=== PATIENT | male | born 1975 | race Caucasian/White ===

== ENCOUNTER 2022-09-10 07:57 | Inpatient (IN) | payer SELFPAY ==
[~2022-09-10 07:57] MED LIST: Lorazepam 1 MG TAB PO PRN
[2022-09-10] MEDS ORDERED: Ondansetron PF 4 MG/2 ML Vial ONE (08:38)
[2022-09-10] MEDS ORDERED: HYDROmorphone 0.5 MG/0.5 ML SYRINGE ONE ×3 (08:39→12:33)
[2022-09-10 08:56] LABS: Mean Corpuscular HGB CONC 31.7 g/dL (32.0-36.0); Mean Corpuscular Hemoglobin 26.4 pg (27.0-33.0); Mean Corpuscular Volume 83.2 fl (81.2-95.1); Mean Platelet Volume 9.9 fl (7.4-10.4); Platelet Count 286 10x3/uL (150-450); RBC Distribution Width 18.9 % (11.5-14.5); Red Blood Cell (RBC) Count 5.31 10x6/uL (4.32-5.72); White Blood Cell (WBC) Count 28.6 10x3/uL (3.5-10.5)
[2022-09-10 08:59] LABS: MDiff Complete? YES
[2022-09-10 09:10] LABS: ALT (SGPT) 64 U/L (8-55); AST (SGOT) 20 U/L (5-34); Albumin 4.8 g/dL (3.5-5.0); Alkaline Phosphatase 76 U/L (40-110); Anion Gap 20 mmol/L (10-20); BUN (Urea Nitrogen) 37 mg/dL (8.9-20.6); Bilirubin, Total 0.7 mg/dL (0.2-1.2); Calc. Creatinine Clearance 0 mL/min (70-130); Carbon Dioxide 23 mmol/L (22-29); Chloride 99 mmol/L (98-107); Estimated GFR 108; Globulin 3.1 g/dL (2.4-3.5); Glucose 135 mg/dL (70-105); Potassium 4.1 mmol/L (3.5-5.1); Protein, Total 7.9 g/dL (6.0-8.3); Sodium 138 mmol/L (136-145)
[2022-09-10 09:21] LABS: Lipase 2621 U/L (8-78)
[2022-09-10] MEDS ORDERED: Iopamidol 300 61% 100 ML VIAL FS ONE (09:24)
[2022-09-10 09:27] LABS: Band 4 % (5-11); Lymphocytes 5 % (21-51); Monocytes 10 % (0-10); Neutrophil 80 % (42-75); Reactive Lymphocytes 1 % (0-10)
[2022-09-10 09:28] LABS: Platelet Morphology Comment Appears Adequate
[2022-09-10 09:30] LABS: Hypochromia SLIGHT = 6-15 cells (100X) (0-5/hpf)
[2022-09-10] MEDS ORDERED: Piperacillin/Tazobactam 4.5 GM VIAL ONE (09:37)
[2022-09-10 09:51] LABS: INR-International Normal Ratio 0.9; PTT 22.2 sec (22.0-33.0); Prothrombin Time 9.8 sec (9.5-12.1)
[2022-09-10 09:56] LABS: Triglycerides 257 mg/dL (Less than 150)
[2022-09-10] MEDS ORDERED: Vancomycin 1 GM VIAL ONE (11:23)
[2022-09-10] MEDS ORDERED: Acetaminophen 650 MG Suppository PR PRN (11:51)
[2022-09-10] MEDS ORDERED: Ondansetron ODT 4 MG TAB PO PRN ×2 (11:51→18:30)
[2022-09-10] MEDS ORDERED: Ondansetron PF 4 MG/2 ML Vial IVP PRN (11:51)
[2022-09-10] MEDS ORDERED: Acetaminophen 325 MG TAB PO PRN (11:51)
[2022-09-10] MEDS ORDERED: Morphine 2 MG/ML VIAL SLOW IVP PRN (11:54)
[2022-09-10] MEDS ORDERED: Promethazine HCl 25 MG/ML VIAL ONE (12:34)
[2022-09-10 13:20] VITALS: BMI 23.5
[2022-09-10 13:44] LABS: Bilirubin Neg (Negative); Blood, Urine Negative (Negative); Clarity Clear (Clear); Glucose, Urine (Dipstick) Normal (Negative); Ketone, Urine Negative (Negative); Leukocyte 25 (Negative); Nitrite Negative (Negative); Protein, Urine (Dipstick) Negative (Neg-Trace); Specific Gravity, Urine 1.015 (1.005-1.030); Urobilinogen Normal mg/dL (Less than 2)
[2022-09-10 14:10] LABS: Bacteria/HPF 3+ HPF (None Seen); RBC/HPF None Seen HPF (0-3); Squamous Epithelial 0-3 HPF (0-3); Trichomonas/HPF Rare HPF (None Seen)
[2022-09-10] MEDS: Lactated Ringer's 1,000 ML IV SCH ×2 (14:48→18:54)
[2022-09-10] MEDS ORDERED: Morphine 4 MG/ML VIAL ONE ×2 (14:52→16:52)
[2022-09-10] MEDS: Morphine 4 MG/ML VIAL SLOW IVP PRN ×2 (14:55→16:55)
[2022-09-10] MEDS ORDERED: Piperacillin/Tazobactam 3.375 GM VIAL ONE (16:09)
[2022-09-10] MEDS: Piperacillin/Tazobactam 3.375 GM in Sodium Chloride 0.9% 100 ML IVPB SCH ×2 (16:15→22:41)
[2022-09-10] MEDS ORDERED: Morphine 4 MG/ML VIAL SLOW IVP SCH (17:00)
[2022-09-10] MEDS ORDERED: Lorazepam 2 MG/ML VIAL IM PRN (18:30)
[2022-09-10] MEDS ORDERED: Electrolyte Replacement Protocol 1 EACH FS PRN (18:30)
[2022-09-10] MEDS: Lorazepam 1 MG TAB PO SCH ×3 (18:50→23:49)
[2022-09-10] MEDS: Morphine 2 MG/ML VIAL SLOW IVP PRN ×2 (18:58→22:48)
[2022-09-10] MEDS: Thiamine HCl 200 MG/2 ML VIAL SLOW IVP SCH (18:58)
[2022-09-11] MEDS: Lactated Ringer's 1,000 ML IV SCH ×5 (00:13→23:15)
[2022-09-11] MEDS: Morphine 2 MG/ML VIAL SLOW IVP PRN ×5 (03:10→19:58)
[2022-09-11] MEDS: Piperacillin/Tazobactam 3.375 GM in Sodium Chloride 0.9% 100 ML IVPB SCH ×3 (05:48→20:55)
[2022-09-11 06:08] LABS: #Basophils 0.1 10x3/uL (0.0-0.2); #Neutrophils 17.1 10x3/uL (1.5-8.4); %Basophils 0.3 % (0.0-2.0); %Eosinophils 0.2 % (0.0-6.0); %Lymphocytes 4.7 % (18.0-47.0); %Neutrophils 86.4 % (40.0-75.0); Hemoglobin 13.8 g/dL (13.5-17.5); Mean Corpuscular HGB CONC 31.7 g/dL (32.0-36.0); Mean Corpuscular Hemoglobin 25.9 pg (27.0-33.0); Mean Platelet Volume 9.9 fl (7.4-10.4); Platelet Count 196 10x3/uL (150-450); RBC Distribution Width 18.7 % (11.5-14.5); Red Blood Cell (RBC) Count 5.32 10x6/uL (4.32-5.72); White Blood Cell (WBC) Count 19.8 10x3/uL (3.5-10.5)
[2022-09-11] MEDS: Lorazepam 1 MG TAB PO SCH ×4 (06:12→23:43)
[2022-09-11 06:50] LABS: ALT (SGPT) 35 U/L (8-55); AST (SGOT) 12 U/L (5-34); Albumin 3.5 g/dL (3.5-5.0); Alkaline Phosphatase 64 U/L (40-110); Anion Gap 15 mmol/L (10-20); BUN (Urea Nitrogen) 26 mg/dL (8.9-20.6); Bilirubin, Total 1.4 mg/dL (0.2-1.2); Calc. Creatinine Clearance 154 mL/min (70-130); Calcium 8.8 mg/dL (7.8-10.44); Carbon Dioxide 22 mmol/L (22-29); Chloride 102 mmol/L (98-107); Estimated GFR 115; Globulin 2.6 g/dL (2.4-3.5); Glucose 108 mg/dL (70-105); Potassium 3.6 mmol/L (3.5-5.1); Protein, Total 6.1 g/dL (6.0-8.3); Sodium 135 mmol/L (136-145)
[2022-09-11] MEDS: Multivit, Therapeutic 1 TAB PO SCH (08:01)
[2022-09-11] MEDS: Morphine 4 MG/ML VIAL SLOW IVP PRN ×2 (08:01→21:05)
[2022-09-11] MEDS: Folic Acid 1 MG TAB PO SCH (08:01)
[2022-09-11] MEDS: Thiamine HCl 200 MG/2 ML VIAL SLOW IVP SCH (18:12)
[2022-09-11] MEDS ORDERED: Lorazepam 1 MG TAB PO PRN (18:30)
[2022-09-11] MEDS ORDERED: Pantoprazole 40 MG VIAL ONE (19:55)
[2022-09-11] MEDS: Pantoprazole 40 MG VIAL IVP SCH (20:00)
[2022-09-12] MEDS: Lactated Ringer's 1,000 ML IV SCH ×4 (00:18→19:10)
[2022-09-12] MEDS: Morphine 2 MG/ML VIAL SLOW IVP PRN (00:19)
[2022-09-12] MEDS: Morphine 4 MG/ML VIAL SLOW IVP PRN ×4 (03:16→15:25)
[2022-09-12] MEDS: Piperacillin/Tazobactam 3.375 GM in Sodium Chloride 0.9% 100 ML IVPB SCH ×3 (05:51→21:04)
[2022-09-12 05:52] LABS: #Basophils 0.1 10x3/uL (0.0-0.2); #Eosinphils 0.2 10x3/uL (0.0-0.5); #Monocytes 1.1 10x3/uL (0.0-1.1); #Neutrophils 13.9 10x3/uL (1.5-8.4); %Basophils 0.3 % (0.0-2.0); %Eosinophils 0.9 % (0.0-6.0); %Lymphocytes 5.9 % (18.0-47.0); %Monocytes 6.4 % (0.0-10.0); %Neutrophils 85.5 % (40.0-75.0); Hemoglobin 11.8 g/dL (13.5-17.5); Mean Corpuscular Hemoglobin 26.3 pg (27.0-33.0); Mean Corpuscular Volume 82.2 fl (81.2-95.1); Mean Platelet Volume 9.9 fl (7.4-10.4); Platelet Count 183 10x3/uL (150-450); RBC Distribution Width 17.7 % (11.5-14.5); Red Blood Cell (RBC) Count 4.49 10x6/uL (4.32-5.72); White Blood Cell (WBC) Count 16.3 10x3/uL (3.5-10.5)
[2022-09-12 06:27] LABS: ALT (SGPT) 30 U/L (8-55); AST (SGOT) 17 U/L (5-34); Albumin 3.3 g/dL (3.5-5.0); Alkaline Phosphatase 179 U/L (40-110); Anion Gap 11 mmol/L (10-20); BUN (Urea Nitrogen) 14 mg/dL (8.9-20.6); Bilirubin, Total 4.7 mg/dL (0.2-1.2); Calc. Creatinine Clearance 152 mL/min (70-130); Calcium 8.8 mg/dL (7.8-10.44); Carbon Dioxide 23 mmol/L (22-29); Chloride 101 mmol/L (98-107); Estimated GFR 115; Globulin 2.6 g/dL (2.4-3.5); Glucose 123 mg/dL (70-105); Potassium 3.3 mmol/L (3.5-5.1); Protein, Total 5.9 g/dL (6.0-8.3); Sodium 132 mmol/L (136-145)
[2022-09-12] MEDS: Lorazepam 0.5 MG TAB PO SCH ×3 (07:14→18:07)
[2022-09-12] MEDS ORDERED: Potassium Chloride 20 MEQ TAB PO SCH (08:00)
[2022-09-12] MEDS: Folic Acid 1 MG TAB PO SCH (11:07)
[2022-09-12] MEDS: Multivit, Therapeutic 1 TAB PO SCH (11:08)
[2022-09-12] MEDS: Pantoprazole 40 MG VIAL IVP SCH ×2 (11:09→20:59)
[2022-09-12] MEDS ORDERED: diphenhydrAMINE 50 MG/ML VIAL IVP PRN (15:11)
[2022-09-12] MEDS ORDERED: diphenhydrAMINE 50 MG/ML VIAL IM PRN (15:11)
[2022-09-12] MEDS ORDERED: diphenhydrAMINE 25 MG CAP PO PRN (15:11)
[2022-09-12] MEDS ORDERED: Ondansetron PF 4 MG/2 ML Vial IVP PRN (15:11)
[2022-09-12] MEDS ORDERED: Zolpidem Tartrate 5 MG TAB PO PRN (15:11)
[2022-09-12] MEDS ORDERED: Promethazine HCl 25 MG/ML VIAL IM PRN (15:11)
[2022-09-12] MEDS ORDERED: Naloxone HCl 0.4 mg/ml Vial IV PRN (15:11)
[2022-09-12] MEDS ORDERED: Communication Order-Pharmacy FS SCH (15:15)
[2022-09-12] MEDS: FENTANYL 500 MCG/10 ML VIAL 1,000 MCG in Sodium Chloride 0.9% 30 ML IV PRN (18:03)
[2022-09-12] MEDS ORDERED: Lorazepam 1 MG TAB PO PRN (18:30)
[2022-09-12] MEDS: Thiamine HCl 200 MG/2 ML VIAL SLOW IVP SCH (19:09)
[2022-09-12] MEDS ORDERED: Mag-Al Plus 1200 MG/1200 MG/120 MG/30 ML UDCUP PO SCH (23:59)
[2022-09-13] MEDS ORDERED: Mag-Al Plus 1200 MG/1200 MG/120 MG/30 ML UDCUP ONE (00:10)
[2022-09-13] MEDS: Lorazepam 0.5 MG TAB PO SCH (00:13)
[2022-09-13 04:40] LABS: #Basophils 0.1 10x3/uL (0.0-0.2); #Eosinphils 0.2 10x3/uL (0.0-0.5); #Monocytes 1.1 10x3/uL (0.0-1.1); #Neutrophils 10.2 10x3/uL (1.5-8.4); %Basophils 0.4 % (0.0-2.0); %Eosinophils 1.3 % (0.0-6.0); %Lymphocytes 7.1 % (18.0-47.0); %Monocytes 8.5 % (0.0-10.0); %Neutrophils 81.7 % (40.0-75.0); Hemoglobin 10.7 g/dL (13.5-17.5); Mean Corpuscular Hemoglobin 26.3 pg (27.0-33.0); Mean Corpuscular Volume 82.1 fl (81.2-95.1); Mean Platelet Volume 10.4 fl (7.4-10.4); Platelet Count 191 10x3/uL (150-450); RBC Distribution Width 17.3 % (11.5-14.5); Red Blood Cell (RBC) Count 4.07 10x6/uL (4.32-5.72); White Blood Cell (WBC) Count 12.5 10x3/uL (3.5-10.5)
[2022-09-13 04:57] LABS: ALT (SGPT) 27 U/L (8-55); AST (SGOT) 18 U/L (5-34); Albumin 3.1 g/dL (3.5-5.0); Alkaline Phosphatase 269 U/L (40-110); Anion Gap 13 mmol/L (10-20); BUN (Urea Nitrogen) 10 mg/dL (8.9-20.6); Bilirubin, Total 3.2 mg/dL (0.2-1.2); Calc. Creatinine Clearance 156 mL/min (70-130); Calcium 8.8 mg/dL (7.8-10.44); Carbon Dioxide 21 mmol/L (22-29); Chloride 99 mmol/L (98-107); Estimated GFR 116; Globulin 2.6 g/dL (2.4-3.5); Glucose 87 mg/dL (70-105); Potassium 3.3 mmol/L (3.5-5.1); Protein, Total 5.7 g/dL (6.0-8.3); Sodium 130 mmol/L (136-145)
[2022-09-13] MEDS: Lactated Ringer's 1,000 ML IV SCH ×2 (05:49→17:29)
[2022-09-13] MEDS: Piperacillin/Tazobactam 3.375 GM in Sodium Chloride 0.9% 100 ML IVPB SCH ×3 (05:49→23:53)
[2022-09-13] MEDS ORDERED: Lorazepam 0.5 MG TAB PO PRN (06:00)
[2022-09-13] MEDS ORDERED: Potassium Chloride 20 MEQ TAB PO SCH (08:00)
[2022-09-13] MEDS: Folic Acid 1 MG TAB PO SCH (09:04)
[2022-09-13] MEDS: Pantoprazole 40 MG VIAL IVP SCH ×2 (09:04→20:18)
[2022-09-13] MEDS: Multivit, Therapeutic 1 TAB PO SCH (09:04)
[2022-09-13] MEDS: Thiamine 100 MG TAB PO SCH (09:04)
[2022-09-13] MEDS: FENTANYL 500 MCG/10 ML VIAL 1,000 MCG in Sodium Chloride 0.9% 30 ML IV PRN (09:37)
[2022-09-13] MEDS ORDERED: FENTANYL 500 MCG/10 ML VIAL 1,000 MCG in Sodium Chloride 0.9% 30 ML IV PRN (10:11)
[2022-09-13] MEDS: Acetaminophen 325 MG TAB PO SCH ×2 (13:35→18:10)
[2022-09-13] MEDS: oxyCODONE 5 MG TAB PO PRN ×2 (13:36→20:03)
[2022-09-13] MEDS ORDERED: HYDROmorphone 10 mg/100 ml CADD IVPB PRN (15:00)
[2022-09-13] MEDS: HYDROmorphone/PF 10 MG in Sodium Chloride 0.9% 49 ML IVPB PRN (15:57)
[2022-09-13] MEDS: Acetaminophen 500 MG TAB PO SCH (23:52)
[2022-09-14] MEDS: Lactated Ringer's 1,000 ML IV SCH ×4 (00:29→22:45)
[2022-09-14 05:01] LABS: #Basophils 0.1 10x3/uL (0.0-0.2); #Eosinphils 0.2 10x3/uL (0.0-0.5); #Monocytes 0.9 10x3/uL (0.0-1.1); #Neutrophils 6.9 10x3/uL (1.5-8.4); %Basophils 0.7 % (0.0-2.0); %Eosinophils 2.1 % (0.0-6.0); %Lymphocytes 8.8 % (18.0-47.0); %Monocytes 10.3 % (0.0-10.0); %Neutrophils 76.4 % (40.0-75.0); Hemoglobin 10.2 g/dL (13.5-17.5); Mean Corpuscular HGB CONC 31.5 g/dL (32.0-36.0); Mean Corpuscular Hemoglobin 25.6 pg (27.0-33.0); Mean Corpuscular Volume 81.4 fl (81.2-95.1); Platelet Count 207 10x3/uL (150-450); RBC Distribution Width 17.2 % (11.5-14.5); Red Blood Cell (RBC) Count 3.98 10x6/uL (4.32-5.72)
[2022-09-14 05:10] LABS: SARS-CoV-2 NAA Rapid Test Not Detected (NotDetected)
[2022-09-14 05:16] LABS: ALT (SGPT) 26 U/L (8-55); AST (SGOT) 20 U/L (5-34); Albumin 3.2 g/dL (3.5-5.0); Alkaline Phosphatase 478 U/L (40-110); Anion Gap 14 mmol/L (10-20); BUN (Urea Nitrogen) 9 mg/dL (8.9-20.6); Calc. Creatinine Clearance 159 mL/min (70-130); Calcium 8.8 mg/dL (7.8-10.44); Carbon Dioxide 21 mmol/L (22-29); Chloride 101 mmol/L (98-107); Estimated GFR 116; Globulin 2.8 g/dL (2.4-3.5); Glucose 84 mg/dL (70-105); Potassium 3.5 mmol/L (3.5-5.1); Sodium 132 mmol/L (136-145)
[2022-09-14] MEDS: Acetaminophen 500 MG TAB PO SCH ×2 (05:39→15:00)
[2022-09-14] MEDS ORDERED: PROPOFOL 40 ML ONE (07:54)
[2022-09-14] MEDS ORDERED: Potassium Chloride 20 MEQ TAB PO SCH (08:00)
[2022-09-14] MEDS: Pantoprazole 40 MG VIAL IVP SCH ×2 (09:39→21:49)
[2022-09-14] MEDS: Piperacillin/Tazobactam 3.375 GM in Sodium Chloride 0.9% 100 ML IVPB SCH ×2 (09:39→14:55)
[2022-09-14] MEDS: Multivit, Therapeutic 1 TAB PO SCH (09:40)
[2022-09-14] MEDS: Thiamine 100 MG TAB PO SCH (09:40)
[2022-09-14] MEDS: Folic Acid 1 MG TAB PO SCH (09:40)
[2022-09-14] MEDS: oxyCODONE 5 MG TAB PO PRN ×2 (09:40→21:50)
[2022-09-14] MEDS: HYDROmorphone/PF 10 MG in Sodium Chloride 0.9% 49 ML IVPB PRN (21:06)
[2022-09-15] MEDS: Acetaminophen 500 MG TAB PO SCH ×6 (00:36→23:00)
[2022-09-15] MEDS: Piperacillin/Tazobactam 3.375 GM in Sodium Chloride 0.9% 100 ML IVPB SCH ×2 (00:40→08:50)
[2022-09-15] MEDS: oxyCODONE 5 MG TAB PO PRN ×6 (01:57→23:00)
[2022-09-15 05:19] LABS: #Basophils 0.1 10x3/uL (0.0-0.2); #Eosinphils 0.2 10x3/uL (0.0-0.5); #Monocytes 1.1 10x3/uL (0.0-1.1); #Neutrophils 7.1 10x3/uL (1.5-8.4); %Basophils 0.8 % (0.0-2.0); %Eosinophils 2.3 % (0.0-6.0); %Lymphocytes 10.9 % (18.0-47.0); %Monocytes 10.8 % (0.0-10.0); %Neutrophils 72.5 % (40.0-75.0); Hemoglobin 10.8 g/dL (13.5-17.5); Mean Corpuscular Hemoglobin 25.7 pg (27.0-33.0); Mean Corpuscular Volume 82.9 fl (81.2-95.1); Mean Platelet Volume 9.9 fl (7.4-10.4); Platelet Count 266 10x3/uL (150-450); RBC Distribution Width 17.4 % (11.5-14.5); White Blood Cell (WBC) Count 9.9 10x3/uL (3.5-10.5)
[2022-09-15 05:28] LABS: ALT (SGPT) 30 U/L (8-55); AST (SGOT) 27 U/L (5-34); Albumin 3.2 g/dL (3.5-5.0); Alkaline Phosphatase 722 U/L (40-110); Anion Gap 14 mmol/L (10-20); BUN (Urea Nitrogen) 7 mg/dL (8.9-20.6); Bilirubin, Total 2.9 mg/dL (0.2-1.2); Calc. Creatinine Clearance 152 mL/min (70-130); Calcium 9.2 mg/dL (7.8-10.44); Carbon Dioxide 23 mmol/L (22-29); Chloride 98 mmol/L (98-107); Estimated GFR 115; Globulin 3.1 g/dL (2.4-3.5); Glucose 71 mg/dL (70-105); Protein, Total 6.3 g/dL (6.0-8.3); Sodium 131 mmol/L (136-145)
[2022-09-15] MEDS: Lactated Ringer's 1,000 ML IV SCH ×2 (06:21→17:38)
[2022-09-15] MEDS: Folic Acid 1 MG TAB PO SCH (08:49)
[2022-09-15] MEDS: Pantoprazole 40 MG VIAL IVP SCH ×2 (08:49→20:02)
[2022-09-15] MEDS: Thiamine 100 MG TAB PO SCH (08:49)
[2022-09-15] MEDS: Multivit, Therapeutic 1 TAB PO SCH (08:49)
[2022-09-16] MEDS: oxyCODONE 5 MG TAB PO PRN ×3 (03:02→11:10)
[2022-09-16] MEDS: HYDROmorphone/PF 10 MG in Sodium Chloride 0.9% 49 ML IVPB PRN (03:04)
[2022-09-16] MEDS: Lactated Ringer's 1,000 ML IV SCH (03:18)
[2022-09-16] MEDS: Acetaminophen 500 MG TAB PO SCH ×2 (06:07→11:10)
[2022-09-16] MEDS: Folic Acid 1 MG TAB PO SCH (08:02)
[2022-09-16] MEDS: Thiamine 100 MG TAB PO SCH (08:02)
[2022-09-16] MEDS: Multivit, Therapeutic 1 TAB PO SCH (08:02)
[2022-09-16] MEDS: Pantoprazole 40 MG VIAL IVP SCH (08:02)
[2022-09-16 12:50] VITALS: BP 157/97; TEMP 97.6
== END 2022-09-16 13:25 | disposition home or self-care (01) | DRG 871 ==
LOC: CSHERS 07:57 → CSHERHOLD 13:11 → CSHTELE 18:28
PROVIDERS: ADMIT Family Medicine; ATTEND Internal Medicine
PROC: 0DJ08ZZ Inspection of Upper Intestinal Tract, Via Natural or Artificial Opening Endoscopic (ICD-10-PCS; principal; 2022-09-14)
DX: A41.9 Sepsis, unspecified organism (principal); K85.90 Acute pancreatitis without necrosis or infection, unspecified; K86.1 Other chronic pancreatitis; F17.210 Nicotine dependence, cigarettes, uncomplicated; F10.10 Alcohol abuse, uncomplicated; D72.829 Elevated white blood cell count, unspecified; G43.909 Migraine, unspecified, not intractable, without status migrainosus; Z20.822 Contact with and (suspected) exposure to COVID-19; Z79.899 Other long term (current) drug therapy; Z98.890 Other specified postprocedural states
CPT/HCPCS: 36415; 71045; 74177; 76705; 80053; 81003; 81015; 83605; 83690; 83880; 84478; 84484; 85025; 85610; 85730; 87040; 87077; 87086; 87149; 87186; 93005; 94760; 96374; 96375; 96376; C9113; J1170; J2270; J2272; J2405; J2543; J2550; J2704; J3010; J3370; J3411; J3490; J7120; Q9967; U0002

== ENCOUNTER 2024-01-12 06:57 | Inpatient (IN) | payer SELFPAY ==
[2024-01-12 08:03] LABS: #Basophils 0.22 10x3/uL (0.0-0.2); #Eosinphils 0.33 10x3/uL (0.0-0.5); #Monocytes 1.21 10x3/uL (0.0-1.1); #Neutrophils 9.64 10x3/uL (1.5-8.4); %Basophils 1.6 % (0.0-2.0); %Eosinophils 2.4 % (0.0-6.0); %Lymphocytes 13.8 % (18.0-47.0); %Monocytes 8.9 % (0.0-10.0); %Neutrophils 70.9 % (40.0-75.0); Hematocrit 46.1 % (38.8-50.0); Hemoglobin 15.6 g/dL (13.5-17.5); Mean Corpuscular HGB CONC 33.8 g/dL (32.0-36.0); Mean Corpuscular Hemoglobin 27.8 pg (27.0-33.0); Mean Corpuscular Volume 82.2 fl (81.2-95.1); RBC Distribution Width 14.8 % (11.5-14.5); Red Blood Cell (RBC) Count 5.61 10x6/uL (4.32-5.72); White Blood Cell (WBC) Count 13.6 10x3/uL (3.5-10.5)
[2024-01-12 08:04] LABS: Platelet Count 425 10x3/uL (150-450)
[2024-01-12 08:07] LABS: Anion Gap 27 mmol/L (10-20); BUN (Urea Nitrogen) 6 mg/dL (8.9-20.6); Calc. Creatinine Clearance 0 mL/min (70-130); Carbon Dioxide 19 mmol/L (22-29); Chloride 87 mmol/L (98-107); Potassium 4.1 mmol/L (3.5-5.1); Sodium 129 mmol/L (136-145)
[2024-01-12 08:08] LABS: ALT (SGPT) 22 U/L (8-55); AST (SGOT) 17 U/L (5-34); Albumin 3.2 g/dL (3.5-5.0); Alkaline Phosphatase 178 U/L (40-110); Bilirubin, Total 0.5 mg/dL (0.2-1.2); Calcium 10.2 mg/dL (7.8-10.44); Estimated GFR 78; Lipase 26 U/L (8-78); Magnesium 1.8 mg/dL (1.6-2.6); Protein, Total 7.2 g/dL (6.0-8.3)
[2024-01-12 08:14] LABS: Critical Call Chemistry NUR.DG3 @0813; Glucose 699 mg/dL (70-105)
[2024-01-12] MEDS ORDERED: Morphine 4 MG/ML VIAL ONE (08:15)
[2024-01-12 08:42] LABS: Actual Bicarbonate (HCO3v) 17.7 mEq/L (22-28); Analyzer IN Cardio CS ER; Base Excess -3.8 mEq/L (-2 - +2); Calcium, Ionized (venous) 1.09 mmol/L (1.16-1.32); Chloride (VBG) 90 mmol/L (98-106); Hematocrit-VBG 41 % (42.0-52.0); Potassium (VBG) 3.33 mmol/L (3.70-5.30); Puncture Site Other Site; Sodium 127 mmol/L (133-146); pH (venous) 7.484 (7.32-7.43)
[2024-01-12 08:45] LABS: Phosphorus 3.8 mg/dL (2.3-4.7)
[2024-01-12] MEDS ORDERED: Insulin Regular 300 UNITS/3 ML VIAL ONE (08:59)
[2024-01-12 09:02] LABS: Troponin I Less than 0.010 ng/mL (< 0.028)
[2024-01-12] MEDS ORDERED: Ondansetron PF 4 MG/2 ML Vial IVP PRN (09:34)
[2024-01-12] MEDS ORDERED: Glucagon 1 MG/ML KIT IM PRN (09:36)
[2024-01-12] MEDS ORDERED: Dextrose 5% in Water 1,000 ML IV PRN (09:36)
[2024-01-12] MEDS ORDERED: Dextrose 50% Abboject 50 ML SYRINGE SLOW IVP PRN (09:36)
[2024-01-12 09:42] LABS: Bilirubin Neg (Negative); Blood, Urine 10 (Negative); Clarity Slightly Cloudy (Clear); Glucose, Urine (Dipstick) >=1000 mg/dL (Negative); Ketone, Urine 50 mg/dL (Negative); Leukocyte 500 (Negative); Nitrite Negative (Negative); Protein, Urine (Dipstick) Negative (Neg-Trace); Specific Gravity, Urine 1.005 (1.005-1.030); Urobilinogen Normal mg/dL (Less than 2)
[2024-01-12] MEDS ORDERED: Electrolyte Replacement Protocol 1 EACH FS SCH (09:45)
[2024-01-12 09:58] LABS: CAUTI Indications for Culture Pelvic or flank pain; RBC/HPF 0-3 HPF (0-3); Squamous Epithelial 0-3 HPF (0-3)
[2024-01-12 09:59] LABS: Bacteria/HPF Rare-Few HPF (None Seen); Trichomonas/HPF 1+ HPF (None Seen)
[2024-01-12 10:00] LABS: Urine Culture Reflex Yes Yes
[2024-01-12 10:54] LABS: Lactic Acid 1.7 mmol/L (0.5-2.2)
[2024-01-12] MEDS ORDERED: Iopamidol 300 61% 100 ML VIAL FS ONE (10:55)
[2024-01-12] MEDS ORDERED: Piperacillin/Tazobactam 3.375 GM in Sodium Chloride 0.9% 100 ML IVPB SCH (12:00)
[2024-01-12] MEDS: Morphine 4 MG/ML VIAL SLOW IVP PRN (12:11)
[2024-01-12] MEDS: Lantus 1000 UNITS/10 ML VIAL SC SCH (12:11)
[2024-01-12] MEDS: Pantoprazole DR 40 MG TAB PO SCH ×2 (12:12→20:33)
[2024-01-12] MEDS: Sodium Chloride 0.9% 1,000 ML IV SCH ×2 (12:12→12:22)
[2024-01-12] MEDS: Magnesium 2 GM/50 ML(in water) 2 GM in Premix 1 BAG IVPB SCH ×2 (12:12→18:34)
[2024-01-12] MEDS: Piperacillin/Tazobactam 3.375 GM in Sodium Chloride 0.9% 100 ML IVPB SCH ×2 (12:13→18:33)
[2024-01-12 12:54] VITALS: BMI 20.2
[2024-01-12 14:54] LABS: Anion Gap 20 mmol/L (10-20); BUN (Urea Nitrogen) 5 mg/dL (8.9-20.6); Calc. Creatinine Clearance 124 mL/min (70-130); Calcium 8.8 mg/dL (7.8-10.44); Carbon Dioxide 19 mmol/L (22-29); Chloride 100 mmol/L (98-107); Estimated GFR 112; Glucose 313 mg/dL (70-105); Magnesium 1.7 mg/dL (1.6-2.6); Phosphorus 2.9 mg/dL (2.3-4.7); Potassium 2.7 mmol/L (3.5-5.1); Sodium 136 mmol/L (136-145)
[2024-01-12] MEDS: Calcium Carbonate 600 MG + Vit D TAB PO SCH (18:36)
[2024-01-12] MEDS: Potassium Chloride 20 MEQ in Premix 1 BAG IVPB SCH (18:37)
[2024-01-12] MEDS: HumaLOG 300 UNITS/3 ML VIAL SC PRN (20:42)
[2024-01-12] MEDS: HYDROcodone/Acetaminophen 7.5/325 mg Tablet PO PRN (20:48)
[2024-01-13 05:12] LABS: Phosphorus 2.7 mg/dL (2.3-4.7)
[2024-01-13 05:22] LABS: ALT (SGPT) 18 U/L (8-55); AST (SGOT) 32 U/L (5-34); Alkaline Phosphatase 133 U/L (40-110); Anion Gap 13 mmol/L (10-20); BUN (Urea Nitrogen) 4 mg/dL (8.9-20.6); Bilirubin, Total 0.4 mg/dL (0.2-1.2); Calc. Creatinine Clearance 135 mL/min (70-130); Calcium 8.1 mg/dL (7.8-10.44); Carbon Dioxide 20 mmol/L (22-29); Chloride 106 mmol/L (98-107); Estimated GFR 116; Glucose 193 mg/dL (70-105); Magnesium 1.7 mg/dL (1.6-2.6); Potassium 3.1 mmol/L (3.5-5.1); Sodium 136 mmol/L (136-145)
[2024-01-13 05:25] LABS: #Basophils 0.14 10x3/uL (0.0-0.2); #Eosinphils 0.29 10x3/uL (0.0-0.5); #Monocytes 0.84 10x3/uL (0.0-1.1); #Neutrophils 6.61 10x3/uL (1.5-8.4); %Basophils 1.5 % (0.0-2.0); %Eosinophils 3.1 % (0.0-6.0); %Lymphocytes 11.9 % (18.0-47.0); %Monocytes 9.1 % (0.0-10.0); %Neutrophils 71.6 % (40.0-75.0); Hemoglobin 11.7 g/dL (13.5-17.5); Mean Corpuscular HGB CONC 33.4 g/dL (32.0-36.0); Mean Corpuscular Hemoglobin 28.1 pg (27.0-33.0); Mean Corpuscular Volume 83.9 fl (81.2-95.1); Mean Platelet Volume 11.6 fl (7.4-10.4); Platelet Count 378 10x3/uL (150-450); Red Blood Cell (RBC) Count 4.17 10x6/uL (4.32-5.72); White Blood Cell (WBC) Count 9.2 10x3/uL (3.5-10.5)
[2024-01-13] MEDS: Potassium Chloride 20 MEQ in Premix 1 BAG IVPB SCH (05:47)
[2024-01-13] MEDS: Magnesium 2 GM/50 ML(in water) 2 GM in Premix 1 BAG IVPB SCH (05:47)
[2024-01-13] MEDS: Enoxaparin 40 MG (0.4 mL) SYRINGE SC SCH (10:03)
[2024-01-13 11:02] VITALS: BMI 20.2
[2024-01-13] MEDS: Sodium Chloride 0.9% 1,000 ML IV SCH (12:23)
[2024-01-13] MEDS: Lantus 1000 UNITS/10 ML VIAL SC SCH ×2 (12:49→20:49)
[2024-01-13 13:29] LABS: Hemoglobin A1c 12.4 % (4.0-6.0)
[2024-01-13] MEDS: Morphine 4 MG/ML VIAL SLOW IVP SCH (14:08)
[2024-01-13] MEDS: Pancrelipase DR 12,000 1 CAP PO SCH (16:22)
[2024-01-13] MEDS: HYDROcodone/Acetaminophen 5/325 mg Tablet PO PRN (23:43)
[2024-01-14 04:02] LABS: #Basophils 0.13 10x3/uL (0.0-0.2); #Eosinphils 0.35 10x3/uL (0.0-0.5); #Monocytes 0.89 10x3/uL (0.0-1.1); #Neutrophils 7.22 10x3/uL (1.5-8.4); %Basophils 1.3 % (0.0-2.0); %Eosinophils 3.5 % (0.0-6.0); %Lymphocytes 11.8 % (18.0-47.0); %Monocytes 8.9 % (0.0-10.0); %Neutrophils 72.3 % (40.0-75.0); Hematocrit 36.5 % (38.8-50.0); Hemoglobin 11.9 g/dL (13.5-17.5); Mean Corpuscular HGB CONC 32.6 g/dL (32.0-36.0); Mean Corpuscular Hemoglobin 27.1 pg (27.0-33.0); Mean Corpuscular Volume 83.1 fl (81.2-95.1); Mean Platelet Volume 10.6 fl (7.4-10.4); Platelet Count 393 10x3/uL (150-450); RBC Distribution Width 15.1 % (11.5-14.5); Red Blood Cell (RBC) Count 4.39 10x6/uL (4.32-5.72)
[2024-01-14 04:06] LABS: ALT (SGPT) 24 U/L (8-55); AST (SGOT) 35 U/L (5-34); Alkaline Phosphatase 149 U/L (40-110); Anion Gap 13 mmol/L (10-20); BUN (Urea Nitrogen) Less than 4 mg/dL (8.9-20.6); Bilirubin, Total 0.3 mg/dL (0.2-1.2); Calc. Creatinine Clearance 141 mL/min (70-130); Calcium 8.2 mg/dL (7.8-10.44); Carbon Dioxide 21 mmol/L (22-29); Chloride 108 mmol/L (98-107); Estimated GFR 117; Globulin 3.1 g/dL (2.4-3.5); Glucose 105 mg/dL (70-105); Magnesium 1.4 mg/dL (1.6-2.6); Protein, Total 5.1 g/dL (6.0-8.3); Sodium 139 mmol/L (136-145)
[2024-01-14 04:10] LABS: Critical Call Chemistry NUR.MB21 @0409; Potassium 2.5 mmol/L (3.5-5.1)
[2024-01-14] MEDS: Potassium Chloride 20 MEQ TAB PO SCH ×2 (04:57→15:06)
[2024-01-14] MEDS: Magnesium 2 GM/50 ML(in water) 2 GM in Premix 1 BAG IVPB SCH ×2 (04:58→15:07)
[2024-01-14 06:08] LABS: ALT (SGPT) 28 U/L (8-55); AST (SGOT) 31 U/L (5-34); Alkaline Phosphatase 148 U/L (40-110); Anion Gap 13 mmol/L (10-20); BUN (Urea Nitrogen) Less than 4 mg/dL (8.9-20.6); Bilirubin, Total 0.3 mg/dL (0.2-1.2); Calc. Creatinine Clearance 137 mL/min (70-130); Calcium 8.5 mg/dL (7.8-10.44); Carbon Dioxide 21 mmol/L (22-29); Chloride 107 mmol/L (98-107); Estimated GFR 116; Glucose 97 mg/dL (70-105); Potassium 2.8 mmol/L (3.5-5.1); Sodium 138 mmol/L (136-145)
[2024-01-14] MEDS: metFORMIN 500 MG TAB PO SCH ×2 (10:05→16:38)
[2024-01-14 13:42] LABS: Magnesium 1.6 mg/dL (1.6-2.6); Potassium 3.1 mmol/L (3.5-5.1)
[2024-01-14 20:24] LABS: Potassium 4.2 mmol/L (3.5-5.1)
[2024-01-14] MEDS: Morphine 4 MG/ML VIAL SLOW IVP PRN (22:24)
[2024-01-15] MEDS: HYDROcodone/Acetaminophen 5/325 mg Tablet PO PRN (02:04)
[2024-01-15 03:48] LABS: ALT (SGPT) 32 U/L (8-55); AST (SGOT) 35 U/L (5-34); Albumin 1.9 g/dL (3.5-5.0); Alkaline Phosphatase 168 U/L (40-110); Anion Gap 11 mmol/L (10-20); BUN (Urea Nitrogen) Less than 4 mg/dL (8.9-20.6); Bilirubin, Total 0.3 mg/dL (0.2-1.2); Calc. Creatinine Clearance 151 mL/min (70-130); Calcium 8.1 mg/dL (7.8-10.44); Carbon Dioxide 21 mmol/L (22-29); Chloride 110 mmol/L (98-107); Estimated GFR 120; Globulin 3.1 g/dL (2.4-3.5); Glucose 125 mg/dL (70-105); Magnesium 1.5 mg/dL (1.6-2.6); Potassium 3.1 mmol/L (3.5-5.1); Sodium 139 mmol/L (136-145)
[2024-01-15 03:53] LABS: #Basophils 0.14 10x3/uL (0.0-0.2); #Monocytes 1.12 10x3/uL (0.0-1.1); %Basophils 1.5 % (0.0-2.0); %Eosinophils 4.2 % (0.0-6.0); %Monocytes 11.7 % (0.0-10.0); Hemoglobin 11.6 g/dL (13.5-17.5); Mean Corpuscular HGB CONC 32.2 g/dL (32.0-36.0); Mean Corpuscular Hemoglobin 27.4 pg (27.0-33.0); Mean Corpuscular Volume 84.9 fl (81.2-95.1); Mean Platelet Volume 10.8 fl (7.4-10.4); Platelet Count 403 10x3/uL (150-450); RBC Distribution Width 15.5 % (11.5-14.5); Red Blood Cell (RBC) Count 4.24 10x6/uL (4.32-5.72); White Blood Cell (WBC) Count 9.6 10x3/uL (3.5-10.5)
[2024-01-15] MEDS: Potassium Chloride 20 MEQ TAB PO SCH (08:43)
[2024-01-15] MEDS: Magnesium 2 GM/50 ML(in water) 2 GM in Premix 1 BAG IVPB SCH (08:45)
[2024-01-15 12:33] VITALS: BP 127/87; TEMP 98.2
[2024-01-15 12:35] LABS: Anion Gap 15 mmol/L (10-20); BUN (Urea Nitrogen) Less than 4 mg/dL (8.9-20.6); Calc. Creatinine Clearance 144 mL/min (70-130); Calcium 8.4 mg/dL (7.8-10.44); Carbon Dioxide 21 mmol/L (22-29); Chloride 109 mmol/L (98-107); Estimated GFR 118; Glucose 114 mg/dL (70-105); Potassium 3.5 mmol/L (3.5-5.1); Sodium 141 mmol/L (136-145)
[2024-01-15 12:37] LABS: Magnesium 1.6 mg/dL (1.6-2.6)
[2024-01-15] MEDS ORDERED: Potassium Chloride 20 MEQ TAB PO SCH (13:30)
[2024-01-15] MEDS ORDERED: Magnesium 2 GM/50 ML(in water) 2 GM in Premix 1 BAG IVPB SCH (13:30)
== END 2024-01-15 13:43 | disposition home or self-care (01) | DRG 438 ==
LOC: CSHERS 06:57 → CSHTELE 10:59
PROVIDERS: ADMIT Family Medicine; ATTEND Family Medicine
DX: K85.90 Acute pancreatitis without necrosis or infection, unspecified (principal); E10.10 Type 1 diabetes mellitus with ketoacidosis without coma; K86.1 Other chronic pancreatitis; G43.909 Migraine, unspecified, not intractable, without status migrainosus; R63.4 Abnormal weight loss; M81.0 Age-related osteoporosis without current pathological fracture; E87.8 Other disorders of electrolyte and fluid balance, not elsewhere classified; R63.0 Anorexia; F17.290 Nicotine dependence, other tobacco product, uncomplicated; F10.10 Alcohol abuse, uncomplicated; Z68.20 Body mass index [BMI] 20.0-20.9, adult; Z71.41 Alcohol abuse counseling and surveillance of alcoholic
CPT/HCPCS: 36415; 36416; 71045; 74177; 80053; 81001; 82010; 82805; 83036; 83605; 83690; 83735; 84100; 84484; 85025; 87086; 93005; 96361; 96374; 96375; J1650; J1815; J2270; J2543; J3475; J3480; J3490; J7050; Q9967

== ENCOUNTER 2024-01-26 17:29 | Emergency (ER) | payer SELFPAY ==
[~2024-01-26 17:29] MED LIST changes: +GASTROGRAFIN 30 ML BOT ONE; +Iopamidol 300 61% 100 ML VIAL FS ONE; -Lorazepam 1 MG TAB PO PRN
[2024-01-26] MEDS ORDERED: Ondansetron PF 4 MG/2 ML Vial ONE ×2 (17:57→20:26)
[2024-01-26] MEDS ORDERED: HYDROmorphone 0.5 MG/0.5 ML SYRINGE ONE ×3 (17:57→23:50)
[2024-01-26] MEDS ORDERED: Famotidine/PF 20 mg/2ml Vial ONE (17:58)
[2024-01-26 18:46] LABS: #Basophils 0.25 10x3/uL (0.0-0.2); #Eosinphils 0.42 10x3/uL (0.0-0.5); #Monocytes 1.18 10x3/uL (0.0-1.1); #Neutrophils 9.98 10x3/uL (1.5-8.4); %Basophils 1.7 % (0.0-2.0); %Eosinophils 2.9 % (0.0-6.0); %Lymphocytes 15.4 % (18.0-47.0); %Neutrophils 67.9 % (40.0-75.0); Hematocrit 44.3 % (38.8-50.0); Hemoglobin 14.6 g/dL (13.5-17.5); Mean Corpuscular Hemoglobin 27.8 pg (27.0-33.0); Mean Corpuscular Volume 84.2 fL (81.2-95.1); Mean Platelet Volume 9.6 fL (7.4-10.4); Platelet Count 675 10x3/uL (150-450); RBC Distribution Width 15.8 % (11.5-14.5); Red Blood Cell (RBC) Count 5.26 10x6/uL (4.32-5.72); White Blood Cell (WBC) Count 14.7 10x3/uL (3.5-10.5)
[2024-01-26 18:58] LABS: ALT (SGPT) 14 U/L (8-55); AST (SGOT) 23 U/L (5-34); Albumin 2.5 g/dL (3.5-5.0); Alkaline Phosphatase 176 U/L (40-110); Anion Gap 21 mmol/L (10-20); BUN (Urea Nitrogen) 13 mg/dL (8.9-20.6); Bilirubin, Total 0.4 mg/dL (0.2-1.2); Calc. Creatinine Clearance 0 mL/min (70-130); Calcium 9.7 mg/dL (7.8-10.44); Carbon Dioxide 19 mmol/L (22-29); Chloride 98 mmol/L (98-107); Estimated GFR 110; Globulin 4.9 g/dL (2.4-3.5); Glucose 139 mg/dL (70-105); Lipase 55 U/L (8-78); Potassium 4.6 mmol/L (3.5-5.1); Protein, Total 7.4 g/dL (6.0-8.3); Sodium 133 mmol/L (136-145)
== END 2024-01-27 00:24 | disposition home or self-care (01) ==
LOC: CSHERS 17:29
DX: K85.90 Acute pancreatitis without necrosis or infection, unspecified (principal); F17.200 Nicotine dependence, unspecified, uncomplicated
CPT/HCPCS: 74177; 80053; 83690; 85025; 93005; 96361; 96374; 96375; 96376; J1170; J2405; Q9963; Q9967; S0028